=== PATIENT | female | born 1985 | race Caucasian/White ===

== ENCOUNTER 2017-10-17 16:37 | Emergency (ER) | payer OTHER ==
[2017-10-17] MEDS ORDERED: DIAZEPAM 5 MG TABLET PO ONE (18:54)
[2017-10-17] MEDS ORDERED: HYDROMORPHONE HCL 1 MG/ML SYRINGE IM ONE (18:54)
[2017-10-17] MEDS ORDERED: KETOROLAC 30 MG/ML VIAL IM ONE (18:54)
[2017-10-17] MEDS ORDERED: PROMETHAZINE HCL 25 MG/ML VIAL IM ONE (18:54)
--- NOTE | 2017-10-17 19:02 | Emergency Department Record ---
History of Present Illness - General Chief Complaint: Neck Injury/Pain Stated Complaint: LT NECK PAIN Time Seen by Provider: 10/17/17 18:48 Source: Patient Mode of Arrival: Ambulatory Limitations: No limitations - History of Present Illness Initial Comments: pt has been having pain and spasm in her neck for several days. she was seen in [facility] twice and had xrays. she was getting better but is now getting worse again. it is difficult for her to turn her head. she has tingling in her fingertips of the left hand. she denies any injury and states she just woke up that way. she took 5 flexeril today [and was advised to not do that again] MD Complaint: Neck pain, Upper back pain Onset/Timin -: Days(s) Place: Home Radiation: Left lateral, Left shoulder, Left upper extremity Severity scale (1-10): 9 Quality: Sharp Consistency: Intermittent Improves With: Medication OTC/prescribed, Remaining still Worsens With: Movement of neck Context: Unknown Associated Symptoms: None Treatments Prior to Arrival: Naproxen, Cold therapy, Heat therapy, Other Treatment Prior to Arrival Comment:: flexeril x5 doses today - Related Data Previous Rx's Medication Instructions Recorded Diazepam [Valium] 5 mg PO Q8H #10 tab 10/17/17 Hydrocodone/Acetaminophen [Mchenry 1 each PO Q8HR #7 tablet 10/17/17 5-325 Tablet] Ibuprofen [Motrin 600Mg] 600 mg PO Q6H #20 tablet 10/17/17 Allergies Allergy/AdvReac Type Severity Reaction Status Date / Time ciprofloxacin [From Cipro] Allergy ANAPHYLAXIS Verified 10/17/17 18:33 ciprofloxacin HCl Allergy ANAPHYLAXIS Verified 10/17/17 18:33 [From Cipro] Travel Screening - Travel/Exposure Within Last 30 Days Have you traveled within the last 30 days?: No - Travel Symptoms Symptom Screening: None Review of Systems Reviewed: No additional complaints except as noted below Constitutional: Reports: As per HPI. Denies: Chills, Fever, Malaise, Night sweats, Weakness, Weight change Eyes: Reports: As per HPI. Denies: Eye discharge, Eye pain, Photophobia, Vision change ENT: Reports: As per HPI. Denies: Congestion, Dental pain, Ear pain, Epistaxis , Hearing loss, Throat pain Respiratory: Reports: As per HPI. Denies: Cough, Dyspnea, Hemoptysis, Stridor, Wheezes Cardiovascular: Reports: As per HPI. Denies: Arrhythmia, Chest pain, Dyspnea on exertion, Edema, Murmurs, Orthopnea, Palpitations, Paroxysmal nocturnal dyspnea, Rheumatic Fever, Syncope Endocrine: Reports: As per HPI. Denies: Fatigue, Heat or cold intolerance, Polydipsia, Polyuria Gastrointestinal: Reports: As per HPI. Denies: Abdominal pain, Constipation, Diarrhea, Hematemesis, Hematochezia, Melena, Nausea, Vomiting Genitourinary: Reports: As per HPI. Denies: Abnormal menses, Discharge, Dyspareunia, Dysuria, Frequency, Hematuria, Incontinence, Retention, Urgency Musculoskeletal: Reports: As per HPI. Denies: Arthralgia, Back pain, Gout, Joint swelling, Myalgia, Neck pain Skin: Reports: As per HPI. Denies: Bruising, Change in color, Change in hair/ nails, Lesions, Pruritus, Rash Neurological: Reports: As per HPI. Denies: Abnormal gait, Confusion, Headache, Numbness, Paresthesias, Seizure, Tingling, Tremors, Vertigo, Weakness Psychiatric: Reports: As per HPI. Denies: Anxiety, Auditory hallucinations, Depression, Homicidal thoughts, Suicidal thoughts, Visual hallucinations Hematological/Lymphatic: Reports: As per HPI. Denies: Anemia, Blood Clots, Easy bleeding, Easy bruising, Swollen glands Past Medical History - SOCIAL HISTORY Smoking Status: Former smoker - RESPIRATORY Hx Respiratory Disorders: No - CARDIOVASCULAR Hx Cardio Disorders: No - NEURO Hx Neuro Disorders: No - GI Hx GI Disorders: Yes Comment:: Colitis - Hx Genitourinary Disorders: No - ENDOCRINE Hx Endocrine Disorders: No - MUSCULOSKELETAL Hx Musculoskeletal Disorders: Yes - PSYCH Hx Psych Problems: No - HEMATOLOGY/ONCOLOGY Hx Hematology/Oncology Disorders: No Family Medical History Any Significant Family History?: Yes Family Hx Comment (NOT TO BE USED IN PLACE OF ITEMS BELOW): Sister w/Lupus Hx Cancer: Mother *Cancer Comment: Brain tumor Hx Diabetes: Father Hx HTN: Father Hx Resp Disorders: Father *Resp Comment: COPD Physical Exam - General General Appearance: Alert, Oriented x3, Cooperative, Mild distress - Head Head exam: Normal inspection - Eye Eye exam: Normal appearance, PERRL, EOMI Pupils: Normal accommodation - ENT ENT exam: Normal exam, Mucous membranes moist, Normal external ear exam, Normal orophraynx Ear exam: Normal external inspection. negative: External canal tenderness Nasal Exam: Normal inspection. negative: Discharge, Sinus tenderness Mouth exam: Normal external inspection, Tongue normal Teeth exam: Normal inspection. negative: Dental caries Throat exam: Normal inspection. negative: Tonsillar erythema, Tonsillar exudate - Neck Neck exam: Tenderness, Other (spasm). negative: Full ROM - Respiratory Respiratory exam: Normal lung sounds bilaterally. negative: Respiratory distress - Cardiovascular Cardiovascular Exam: Regular rate, Normal rhythm, Normal heart sounds - GI/Abdominal GI/Abdominal exam: Soft, Normal bowel sounds. negative: Tenderness - Rectal Rectal exam: Deferred - exam: Deferred - Extremities Extremities exam: Normal inspection, Full ROM, Normal capillary refill. negative: Tenderness - Back Back exam: Reports: Full ROM, Muscle spasm (l trapezius), Tenderness. Denies: Rash noted - Neurological Neurological exam: Alert, CN II-XII intact, Normal gait, Oriented X3 - Psychiatric Psychiatric exam: Normal affect, Normal mood - Skin Skin exam: Dry, Intact, Normal color, Warm Course Vital Signs 10/17/17 18:33 Temperature 98.9 F Pulse Rate 87 Respiratory 20 Rate Blood Pressure 129/75 Pulse Ox 98 - Reevaluation(s) Reevaluation #1: 10/17/17 20:01 pt feels better Disposition Disposition: Discharge Clinical Impression: Torticollis, acute Disposition: Home, Self-Care Condition: (1) Good Instructions: Spasmodic Torticollis (ED) Additional Instructions: follow up with family doctor, return sooner if worse. continue moist heat. Prescriptions: Hydrocodone/Acetaminophen [Mchenry 5-325 Tablet] 1 each PO Q8HR #7 tablet Diazepam [Valium] 5 mg PO Q8H #10 tab Ibuprofen [Motrin 600Mg] 600 mg PO Q6H #20 tablet Forms: Patient Portal Access Quality - Quality Measures Quality Measures: N/A - Blood Pressure Screening Does Patient Have Any of the Following: No Blood Pressure Classification: Pre-Hypertensive BP Reading Systolic Measurement: 129 Diastolic Measurement: 75 Screening for High Blood Pressure: < Pre-Hypertensive BP, F/U Documented > [ G8950] Pre-Hypertensive Follow-up Interventions: Follow-up with rescreen every year.
== END 2017-10-17 20:14 | disposition home or self-care (01) ==
LOC: ER 16:37
DX: M43.6 Torticollis (principal)
CPT/HCPCS: 99283 ×2; 96372; J3490; J1885; J1170; J2550

== ENCOUNTER 2018-11-28 18:03 | Emergency (ER) | payer BC ==
[2018-11-28] MEDS ORDERED: ASPIRIN 81 MG CHEWABLE TABLET PO ONE (18:31)
--- NOTE | 2018-11-28 18:37 | Emergency Department Record ---
History of Present Illness - General Chief Complaint: Chest Pain Stated Complaint: CHEST PAIN Time Seen by Provider: 11/28/18 18:29 Source: Patient Mode of Arrival: Ambulatory Limitations: No limitations - History of Present Illness Initial Comments: 33 yo female presents with a chest discomfort feeling yesterday and today. The sensation is like a "chest cold" but she is not coughing. She states the sensation is present all the time. It does feel more pronounced with deep breathing. No syncope, calf pain, history of DVT, PE,CAD,DM, HTN or elevated cholesterol. She is a non-smoker. She does take palpitations from anxiety and she takes propranolol. PCP is the [facility]. MD Complaint: Chest pain Onset/Timin -: Days(s) Onset: During rest Pain Location: Left chest Severity: Moderate Severity scale (1-10): 8 Quality: Heaviness Consistency: Constant Improves With: Nothing Worsens With: Nothing Other Symptoms: Palpitations Treatments Prior to Arrival: Aspirin - Related Data Home Medications Medication Instructions Recorded Confirmed Last Taken Propranolol HCl 20 mg PO ASDIR 11/28/18 11/28/18 Unknown Allergies Allergy/AdvReac Type Severity Reaction Status Date / Time ciprofloxacin [From Cipro] Allergy ANAPHYLAXIS Verified 11/28/18 18:11 ciprofloxacin HCl Allergy ANAPHYLAXIS Verified 11/28/18 18:11 [From Cipro] Travel Screening - Travel/Exposure Within Last 30 Days Have you traveled within the last 30 days?: No Review of Systems Constitutional: Denies: Chills, Fever, Malaise, Weakness Eyes: Denies: Eye discharge, Eye pain, Photophobia, Vision change ENT: Denies: Congestion, Throat pain Respiratory: Denies: Cough, Dyspnea, Hemoptysis, Stridor Cardiovascular: Reports: Chest pain, Palpitations. Denies: Dyspnea on exertion , Edema, Syncope Endocrine: Denies: Fatigue, Polydipsia, Polyuria Gastrointestinal: Denies: Abdominal pain, Diarrhea, Nausea, Vomiting Genitourinary: Denies: Dysuria Musculoskeletal: Denies: Arthralgia, Back pain, Myalgia Skin: Denies: Bruising, Change in color, Rash Neurological: Denies: Confusion, Headache, Numbness, Paresthesias, Weakness Psychiatric: Denies: Anxiety Hematological/Lymphatic: Denies: Blood Clots, Easy bleeding, Easy bruising, Swollen glands Past Medical History - SOCIAL HISTORY Smoking Status: Former smoker Alcohol Use: None Drug Use: None - RESPIRATORY Hx Respiratory Disorders: No - CARDIOVASCULAR Hx Cardio Disorders: No - NEURO Hx Neuro Disorders: No - GI Hx GI Disorders: Yes Comment:: Colitis - Hx Genitourinary Disorders: No - ENDOCRINE Hx Endocrine Disorders: No - MUSCULOSKELETAL Hx Musculoskeletal Disorders: Yes - PSYCH Hx Psych Problems: Yes Comment:: anxiety with palpitations - HEMATOLOGY/ONCOLOGY Hx Hematology/Oncology Disorders: No Family Medical History Any Significant Family History?: Yes Family Hx Comment (NOT TO BE USED IN PLACE OF ITEMS BELOW): Sister w/Lupus Hx Cancer: Mother *Cancer Comment: Brain tumor Hx Diabetes: Father Hx Heart Disease: Father Hx HTN: Father Hx Resp Disorders: Father *Resp Comment: COPD Physical Exam - General General Appearance: Alert, Oriented x3, Cooperative, No acute distress Limitations: No limitations - Head Head exam: Atraumatic, Normal inspection - Eye Eye exam: Normal appearance, PERRL. negative: Conjunctival injection, Scleral icterus - ENT ENT exam: Normal exam, Mucous membranes moist Ear exam: Normal external inspection Nasal Exam: Normal inspection Mouth exam: Normal external inspection - Neck Neck exam: Normal inspection. negative: Lymphadenopathy, Thyromegaly - Respiratory Respiratory exam: Normal lung sounds bilaterally, Chest wall tenderness (tender to palpation left sternal). negative: Accessory muscle use, Decreased breath sounds, Prolonged expiratory, Respiratory distress, Rhonchi, Wheezes - Cardiovascular Cardiovascular Exam: Regular rate, Normal rhythm, Normal heart sounds. negative : Diastolic murmur, Irregular rhythm, Systolic murmur Peripheral Pulses: 2+: Radial (R), Radial (L) - GI/Abdominal GI/Abdominal exam: negative: Soft, Tenderness - Rectal Rectal exam: Deferred - exam: Deferred - Extremities Extremities exam: Normal capillary refill. negative: Calf tenderness, Pedal edema, Tenderness - Back Back exam: Denies: CVA tenderness (R), CVA tenderness (L) - Neurological Neurological exam: Alert, Normal gait, Oriented X3. negative: Altered - Psychiatric Psychiatric exam: Normal affect, Normal mood. negative: Agitated, Anxious - Skin Skin exam: Dry, Intact, Normal color, Warm Course Vital Signs 11/28/18 18:05 Temperature 97.8 F Pulse Rate 90 Respiratory 18 Rate Blood Pressure 113/68 Pulse Ox 98 - Reevaluation(s) Reevaluation #1: EKG #1 18:10 Sinus Rhythm Normal Rate 88 Intervals Normal [place] is normal ST segments normal Normal EKG 11/28/18 18:37 11/28/18 19:01 The labs were reviewed No acute changes on the CBC,BMP. The Troponin was negative (with over 24 hours of atypical symptoms) and a negative D-dimer 11/28/18 19:17 The patient is HEART Score of 0 She has a normal EKG No traditional risk factors I recommend DC with follow up as an outpatient with [facility] cardiology A referral to cardiology was placed We discussed at length returning to the ED if any return or symptoms or any new concerns 11/28/18 19:32 The Final chest X-ray was negative Medical Decision Making - Lab Data Result diagrams: 11/28/18 18:20 11/28/18 18:20 Disposition Disposition: Discharge Clinical Impression: Atypical chest pain Disposition: Home, Self-Care Condition: (1) Good Instructions: Chest Pain (ED) Additional Instructions: Call your doctor for the next available follow up appointment You have been referred to cardiology for follow up Return to the ER for a recheck if worse, any new concerns or questions Review this ER visit and the tests performed with your family doctor Referrals: HONEY WADE M.D. [MEDICAL DOCTOR] - Forms: Patient Portal Access Time of Disposition: 19:34 Quality - Quality Measures Quality Measures: N/A - Blood Pressure Screening Does Patient Have Any of the Following: No Blood Pressure Classification: Pre-Hypertensive BP Reading Systolic Measurement: 120 Diastolic Measurement: 55 Screening for High Blood Pressure: < Pre-Hypertensive BP, F/U Documented > [ G8950] Pre-Hypertensive Follow-up Interventions: Referral to alternative/primary care provider.
[2018-11-28 18:40] LABS: BASO % 0.2 % (0-6); EOS % 1.1 % (0-6); GRAN % 78.6 % (47-80); HEMATOCRIT 39.3 % (35.0-47.0); HEMOGLOBIN 12.7 gm/dl (11.6-16.0); LYMPH % 14.1 % (16-45); MEAN CORPUSCULAR HEMOGLOBIN 27.1 pg (27-33); MEAN CORPUSCULAR HGB CONC 32.3 g/dl (32-36); MEAN PLATELET VOLUME 11.4 fl (7.4-10.4); PLATELET COUNT 263 K/uL (130-400); RED BLOOD COUNT 4.68 M/uL (3.80-5.40); RED CELL DISTRIBUTION WIDTH 14.4 % (11.5-14.5); WHITE BLOOD COUNT W/O DIFF 13.2 K/uL (4.2-12.2)
[2018-11-28 18:49] LABS: BLOOD UREA NITROGEN 8 mg/dL (6-20); CREATININE 0.8 mg/dL (0.5-0.9); EST GLOMERULAR FILTRATION RATE > 60 mL/min
[2018-11-28 18:52] LABS: GLUCOSE,RANDOM 88 mg/dL (74-109)
[2018-11-28] MEDS ORDERED: DIPHENHYDRAMINE ELIXIR 25MG/10ML UD PO ONE (19:04)
[2018-11-28] MEDS ORDERED: PREDNISOLONE 15MG/5ML 10ML UD PO ONE (19:04)
--- NOTE | 2018-11-30 08:58 | RADIOLOGY REPORT ---
EXAM: CHEST, TWO VIEWS HISTORY: CHEST PAIN WITH LEFT ARM TINGLING SINCE YESTERDAY. TECHNIQUE: PA and lateral upright views of the chest were obtained. Comparison: 10/26/18. FINDINGS: The heart, mediastinum, and pulmonary vasculature are normal. A small nodule is again noted within the right upper lobe and appears unchanged. Continued follow-up of this nodule is recommended. The remaining lung cochran are clear. There are no acute infiltrates or effusions. There is no pneumothorax. There is minor dextroconvex curvature within the thoracic spine. There are no acute osseous abnormalities. IMPRESSION: 1. NO ACUTE CHEST PATHOLOGY. 2. PERSISTENT RIGHT UPPER LOBE NODULE. CHEST CT IS RECOMMENDED FOR FURTHER CHARACTERIZATION IF NOT PERFORMED PREVIOUSLY. JOB NUMBER: [id number] [facility]
== END 2018-11-28 19:41 | disposition home or self-care (01) ==
LOC: ER 18:03
DX: R07.89 Other chest pain (principal); R20.2 Paresthesia of skin; F17.210 Nicotine dependence, cigarettes, uncomplicated
CPT/HCPCS: 71046; 80048; 84484; 84703; 85025; 85379; 93005; 93010; 99284

== ENCOUNTER 2019-03-06 11:52 | Emergency (ER) | payer BC ==
[2019-03-06] MEDS ORDERED: KETOROLAC 30 MG/ML VIAL IVP ONE (12:17)
[2019-03-06] MEDS ORDERED: 0.9 % SODIUM CHLORIDE 1,000 ML BAG IV ONE (12:17)
[2019-03-06] MEDS ORDERED: METOCLOPRAMIDE HCL 10 MG/2 ML VIAL IVP ONE (12:17)
[2019-03-06] MEDS ORDERED: DIPHENHYDRAMINE HCL 50 MG/ML VIAL IVP ONE (12:17)
--- NOTE | 2019-03-06 12:21 | Emergency Department Record ---
History of Present Illness - General Chief Complaint: Headache Migraine Stated Complaint: HEADACHE Time Seen by Provider: 03/06/19 11:57 Source: Patient Mode of Arrival: Ambulatory Limitations: No limitations - History of Present Illness Initial Comments: The patient is here due to a 4 day hx of a BANKS. The pain is mainly like a band around the head and some neck pain also. The onset was 4 days ago and the pain has since gradually worsened. She did have some blurred vision while driving here to the ER but that has subsided. The patient denies any fever, chills, vomiting, or balance issues but she does have nausea. She does have a long hx of migraine BANKS's but this is different. She was seen over in the here and sent to the ER for IV pain medicines. MD Complaint: Headache Onset/Timin -: Days(s) Onset Description: Gradual Location: Occipital Quality: Throbbing, Different than previous headaches Consistency: Constant Associated Symptoms: Nausea, Photophobia, Other - Related Data Allergies Allergy/AdvReac Type Severity Reaction Status Date / Time ciprofloxacin HCl Allergy ANAPHYLAXIS Verified 03/06/19 12:03 [From Cipro] Travel Screening - Travel/Exposure Within Last 30 Days Have you traveled within the last 30 days?: No - Travel/Exposure Within Last Year Have you traveled outside the [place] in the last year?: No - Additonal Travel Details Have you been exposed to anyone with a communicable illness?: No - Travel Symptoms Symptom Screening: None Review of Systems Constitutional: Denies: Chills, Fever Eyes: Denies: Eye discharge ENT: Denies: Congestion Respiratory: Denies: Cough, Dyspnea Past Medical History - SOCIAL HISTORY Smoking Status: Former smoker Alcohol Use: None Drug Use: None - RESPIRATORY Hx Respiratory Disorders: Yes Comment:: calified lung nodule - CARDIOVASCULAR Hx Cardio Disorders: Yes Hx Chest Pain: Yes - NEURO Hx Neuro Disorders: Yes Hx Headaches: Yes - GI Hx GI Disorders: Yes Hx Diverticulitis: Yes (diverticulosis) Comment:: Colitis - Hx Genitourinary Disorders: Yes Hx Kidney Stones: Yes - ENDOCRINE Hx Endocrine Disorders: No - MUSCULOSKELETAL Hx Musculoskeletal Disorders: Yes - PSYCH Hx Psych Problems: Yes Hx Anxiety: Yes (adjustment disorder) Comment:: anxiety with palpitations - HEMATOLOGY/ONCOLOGY Hx Hematology/Oncology Disorders: No Family Medical History Any Significant Family History?: No Family Hx Comment (NOT TO BE USED IN PLACE OF ITEMS BELOW): Sister w/Lupus Hx Cancer: Mother *Cancer Comment: Brain tumor Hx Diabetes: Father Hx Heart Disease: Father Hx HTN: Father Hx Resp Disorders: Father *Resp Comment: COPD Physical Exam - General General Appearance: Alert, Oriented x3, Cooperative, No acute distress - Head Head exam: Atraumatic, Normocephalic, Normal inspection, Other (Palpation of the patient's bitemporal skull area does reproduce the pain 100%.) - Eye Eye exam: Normal appearance, PERRL, EOMI. negative: Conjunctival injection - ENT Throat exam: Normal inspection. negative: Tonsillar erythema, Tonsillar exudate - Neck Neck exam: Normal inspection, Full ROM. negative: Meningismus (The neck is very supple.), Tenderness - Respiratory Respiratory exam: Normal lung sounds bilaterally. negative: Respiratory distress - Cardiovascular Cardiovascular Exam: Regular rate, Normal rhythm, Normal heart sounds - GI/Abdominal GI/Abdominal exam: Soft, Normal bowel sounds. negative: Tenderness - Extremities Extremities exam: Normal inspection, Full ROM, Normal capillary refill. negative: Tenderness - Neurological Neurological exam: Alert, Normal gait, Oriented X3, Other (Neg Drift and [place]om[place].). negative: Abnormal gait, Altered, Motor sensory deficit - Psychiatric Psychiatric exam: negative: Anxious - Skin Skin exam: negative: Rash Course Vital Signs 03/06/19 11:54 Temperature 97.9 F Pulse Rate 71 Respiratory 16 Rate Blood Pressure 114/82 Pulse Ox 97 - Reevaluation(s) Reevaluation #1: The patient is doing better at this time. She states the BANKS is improving and she denies any nausea or vomiting. 03/06/19 13:44 Reevaluation #2: The patient is doing a lot better at this time. Her BANKS is much improved and she would like to go home. I did discuss the normal lab and CT results with her. I also do feel the pain is musculoskeletal due to the fact it is so reproducible. Do to the fact the BANKS was different from her normal pain and her doctor sent her over here for it I did recommend an LP to make sure she did not have a leaking SAH. I did discuss the fact that on day # [address] is only 92-95% sensitive to clam picker a small amount of blood from a leaking SAH. I also discussed the risks of missing a SAH which could lead to worsening head pain, stroke, disability and . The patient is aware of the risks and is refusing the test. She understands we cannot be held liable for NOT doing the LP and NOT diagnosing the SAH because we are not allowed to perform the LP. The patient presently has proper decision making capacity and will return for any worsening symptoms. 03/06/19 14:13 Medical Decision Making - Data Complexity MDM Data: Labs Ordered and/or Reviewed, X-Ray Ordered and/or Reviewed - Lab Data Result diagrams: 03/06/19 12:33 03/06/19 12:33 - Radiology Data Radiology results: Report reviewed (Head CT: Neg for any acute changes.) Disposition Disposition: Discharge Clinical Impression: Headache Qualifiers: Headache type: tension-type Headache chronicity pattern: acute headache Intractability: not intractable Qualified Code(s): G44.209 - Tension-type headache, unspecified, not intractable Disposition: Home, Self-Care Condition: (2) Stable Instructions: Acute Headache (ED) Additional Instructions: Please rest at home and drink plenty of fluids. Take your home pain medicines and please see your family doctor for recheck later this week. Return to the ER for any worsening symptoms. Forms: Patient Portal Access Time of Disposition: 14:12 Quality - Quality Measures Quality Measures: N/A - Blood Pressure Screening View Details: Yes Does Patient Have Any of the Following: No Blood Pressure Classification: Pre-Hypertensive BP Reading Systolic Measurement: 114 Diastolic Measurement: 82 Screening for High Blood Pressure: < Pre-Hypertensive BP, F/U Documented > [G8950] Pre-Hypertensive Follow-up Interventions: Referral to alternative/primary care provider.
[2019-03-06 12:41] LABS: ABSOLUTE NEUTROPHIL COUNT 6.14; BASO % 0.2 % (0-6); EOS % 1.6 % (0-6); GRAN % 69.7 % (47-80); HEMATOCRIT 43.2 % (35.0-47.0); LYMPH % 21.8 % (16-45); MEAN CELL VOLUME 84.2 fl (81-97); MEAN CORPUSCULAR HEMOGLOBIN 27.3 pg (27-33); MEAN CORPUSCULAR HGB CONC 32.4 g/dl (32-36); MEAN PLATELET VOLUME 11.5 fl (7.4-10.4); MONO % 6.7 % (0-9); PLATELET COUNT 258 K/uL (130-400); RED BLOOD COUNT 5.13 M/uL (3.80-5.40); RED CELL DISTRIBUTION WIDTH 13.6 % (11.5-14.5); WHITE BLOOD COUNT W/O DIFF 8.8 K/uL (4.2-12.2)
[2019-03-06 12:56] LABS: BILIRUBIN,TOTAL < 0.20 mg/dL (0.2-1.0); BLOOD UREA NITROGEN 9 mg/dL (6-20); CREATININE 0.7 mg/dL (0.5-0.9); EST GLOMERULAR FILTRATION RATE > 60 mL/min
[2019-03-06 12:59] LABS: GLUCOSE,RANDOM 101 mg/dL (74-109)
[2019-03-06 13:01] LABS: ALB/GLOB RATIO 1.4 (1.1-1.8); ALBUMIN 4.1 g/dL (4.0-5.0); ALT/SGPT 18 U/L (<33); AST/SGOT 19 U/L (10.0-35.0)
[2019-03-06 13:02] LABS: ALKALINE PHOSPHATASE 64 U/L (35-104); C-REACTIVE PROTEIN 0.19 mg/dL (<0.5)
[2019-03-06] MEDS ORDERED: ACETAMINOPHEN 1,000 MG/100 ML BTL IVPB ONE (13:21)
--- NOTE | 2019-03-07 08:12 | CT SCAN REPORT ---
EXAM: CT OF THE HEAD WITHOUT CONTRAST HISTORY: HEADACHES FOR FOUR DAYS. NO KNOWN INJURY. TECHNIQUE: Routine noncontrast CT of the brain was obtained. Comparison: None. FINDINGS: The ventricles and subarachnoid spaces are normal in size. No area of abnormally increased or decreased attenuation is noted throughout the brain substance. No abnormal extraaxial fluid collection is seen. No acute skull abnormality. There is a tiny retention cyst within the left maxillary sinus. The visualized paranasal sinuses and mastoid air cells are otherwise clear. The orbits as visualized are unremarkable. IMPRESSION: 1. NO INTRACRANIAL ABNORMALITY IDENTIFIED. 2. TINY RETENTION CYST VERSUS POLYP IN THE LEFT MAXILLARY SINUS. JOB NUMBER: [id number] MTDD
== END 2019-03-06 14:26 | disposition home or self-care (01) ==
LOC: ER 11:52
DX: G44.209 Tension-type headache, unspecified, not intractable (principal); R11.0 Nausea; M54.2 Cervicalgia; H53.149 Visual discomfort, unspecified; H53.8 Other visual disturbances
CPT/HCPCS: 99284 ×2; 96365; 96375; 85025; 86140; 80053; 70450; J1885; J1200; J2765; J7030

== ENCOUNTER 2019-07-10 07:02 | Day surgery (SDC) | payer BC ==
[~2019-07-10 07:02] MED LIST: ACETAMINOPHEN 1,000 MG/100 ML BTL IVPB ONE; FAMOTIDINE 20MG TABLET PO ONE; MECLIZINE 25 MG TABLET PO ONE; METOCLOPRAMIDE 10 MG TABLET PO ONE; SCOPOLAMINE 1 PATCH TDSY TD ONE
[2019-07-10] MEDS ORDERED: GLYCOPYRROLATE 0.2 MG/ML ML IV ONE (07:03)
[2019-07-10] MEDS ORDERED: ROCURONIUM BROMIDE 50MG/5ML VIAL IV ONE (07:03)
[2019-07-10] MEDS ORDERED: MIDAZOLAM HCL 2MG/2ML VIAL IV ONE (07:03)
[2019-07-10] MEDS ORDERED: ONDANSETRON HCL IV 4 MG/2 ML VIAL IVP ONE ×2 (07:03→10:14)
[2019-07-10] MEDS ORDERED: SEVOFLURANE 250 ML INH ONE (07:03)
[2019-07-10] MEDS ORDERED: SUCCINYLCHOLINE 20 MG/ML 10ML IVP ONE (07:03)
[2019-07-10] MEDS ORDERED: KETOROLAC 30 MG/ML VIAL IVP ONE (07:03)
[2019-07-10] MEDS ORDERED: PROPOFOL 10 MG/ML VIAL IV ONE (07:03)
[2019-07-10] MEDS ORDERED: LIDOCAINE 2% MDV (20MG/ML) 20ML VIAL IV ONE (07:03)
[2019-07-10] MEDS ORDERED: NEOSTIGMINE 1 MG/1 ML,10ML VIAL IV ONE (07:03)
[2019-07-10] MEDS ORDERED: FENTANYL PF 100MCG/2ML VIAL IV ONE (07:03)
[2019-07-10] MEDS ORDERED: RINGERS SOLUTION,LACTATED 1,000 ML IV ONE ×2 (07:25→09:16)
[2019-07-10] MEDS ORDERED: BUPIVACAINE 0.25% W/EPI MPF 30ML VIAL SQ ONE (09:04)
[2019-07-10] MEDS: FENTANYL CITRATE/PF (PACU) 50 MCG/ML VIAL IVP PRN ×3 (09:36→09:49)
[2019-07-10] MEDS ORDERED: HYDROCODONE/APAP 5/325MG TABLET PO ONE (10:05)
[2019-07-10] MEDS ORDERED: HYDROMORPHONE HCL 2 MG/ML VIAL IM ONE (11:28)
--- NOTE | 2019-07-11 06:02 | Operative Note ---
DATE OF SURGERY: 07/10/2019 SURGEON: Jostin House DO PREOPERATIVE DIAGNOSIS: Cholelithiasis with chronic cholecystitis. POSTOPERATIVE DIAGNOSIS: Cholelithiasis with chronic cholecystitis. OPERATION: Laparoscopic cholecystectomy. INDICATION: The patient is a 34-year-old female who is having ongoing right subcostal postprandial pain. Workup included imaging which did reveal a thickened contracted gallbladder. We did discuss cholecystectomy versus medical management. She desired surgical intervention. Risks include but are not limited to bleeding, infection, ductal injury, possible conversion to open, postoperative bile leak. She understood this fully. PROCEDURE: Thereafter, consent was signed and questions answered. She was taken to the operating room and placed in a supine position. General anesthesia was administered per the department of anesthesia. The patient's abdomen was prepped and draped in the usual sterile fashion. Due to her morbid obesity, I did elect to go in a supraumbilical region. This area was anesthetized with a total of 2 mL of 0.25% Sensorcaine with epinephrine. A 2 cm supraumbilical incision was made. This was carried down to the anterior rectus fascia. This was incised. Janett clamps were placed on the fascial edges and brought up into the wound. Stay sutures of 0 Vicryl were placed. Posterior rectus sheath was identified and incised. The peritoneal cavity was entered bluntly. At this time, a 10 mm blunt Jeanine port was placed. Adequate pneumoperitoneum was established. Under direct visualization, additional 5 mm epigastric and two 5 mm right subcostal ports were placed. The gallbladder was identified. It was noted to be very thickened and inflamed. Dense omental adhesions were noted as well. This was retracted in a cephalad and lateral direction. The omental adhesions were taken down bluntly. At this time, the hepatocystic triangle was thoroughly dissected out. There was no aberrant anatomy, no posterior ductal structures. The distal half of the gallbladder was released from the liver plate elongating our retroductal window. The cystic duct and cystic artery were clearly identified. We had an excellent critical view of safety. Each one was doubly clipped and cut in a standard fashion. Gallbladder essentially peeled off the liver bed. This was then placed in an EndoCatch bag and brought out through the umbilical port. Right upper quadrant was rechecked and noted to be hemostatic. No bleeding. No bile leaking. No bowel injury noted. The patient was leveled out. The pneumoperitoneum was released. All ports were removed. The fascia was closed with 0 Vicryl in a [id number] fashion. The skin at all ports was closed with 4-0 Vicryl. The patient was taken to the recovery room in stable condition. FINDINGS AT THE TIME OF SURGERY: Chronic cholecystitis. MTDD
== END 2019-07-10 12:00 | disposition home or self-care (01) ==
LOC: SUR 07:02
PROVIDERS: ATTEND Surgery
DX: K80.10 Calculus of gallbladder with chronic cholecystitis without obstruction (principal); I10 Essential (primary) hypertension; J98.4 Other disorders of lung
CPT/HCPCS: 81025; J0330; J1885; J2405; J2710; J7120